=== PATIENT | female | born 1975 | race Hispanic/Latino ===

== ENCOUNTER 2016-06-07 13:50 | Outpatient (RCR) | payer OTHER ==
--- OUTSIDE RECORDS SUMMARY | 2016-04-26 14:18 | XMS REPORT | Continuity of Care Document ---
Author Author [facility] Organization [facility] Address Unknown Phone Unavailable Care Team Providers Care Billing Assistant Name Role Phone SEGUNDO FELIZ DO PCP Insurance Providers Payer Name Policy Number Subscriber Name Relationship Self Pay Approved Full [employer] [id number] Rodrigue Figueroa 18 Self / Same As Patient Advance Directives Directive Response Recorded Date/Time Advance Directives No 01/18/12 4:56pm Problems No problem information available. Medications Current Home Medications Medication Dose Units Route Directions Days/Qty Instructions Start Date Vits W-Ca,Fe,Fa(<1MG) 1 Each 1 Each Oral Daily 12/26/11 Calcium Carbonate/Vitamin D3 1 Each 1 Each Oral Daily 12/26/11 Ascorbate Calcium 500 Mg 500 Mg Oral Daily 12/26/11 Ferrous Sulfate 325 Mg 1 Tab Oral Daily 30 12/26/11 Ibuprofen 600 Mg 600 Mg Oral Q6hrs As Needed 01/20/12 Past Home Medications Medication Directions Ordered Status Nitrofurantoin Macrocrystals 100 Mg Capsule, 1 Each Oral Twice A Day Discontinued Phenazopyridine Hcl 200 Mg Tablet, 1 Each Oral Three Times A Day And Prn 21/04 Discontinued Social History Social History Problem Response Recorded Date/Time Recent Foreign Travel N [place] 02/16/2016 3:44pm Hospital Discharge Instructions No hospital discharge instructions. Plan of Care Prescriptions See Medication Section Functional Status No functional status results. Allergies, Adverse Reactions, Alerts No known allergies. Immunizations No immunization records. Vital Signs No known vital signs results. Results Laboratory Results Test Name Result Units Flags Reference Collection Date/Time Result Date/ Time Comments White Blood Count 4.6 10^3/uL 4.3-11.0 03/15/2016 2:05pm 03/15/2016 2: 09pm Red Blood Count 4.05 10^6/uL L 4.35-5.85 03/15/2016 2:05pm 03/15/2016 2: 09pm Hemoglobin 10.8 G/DL L 11.5-16.0 03/15/2016 2:05pm 03/15/2016 2:09pm Hematocrit 32 % L 35-52 03/15/2016 2:05pm 03/15/2016 2:09pm Mean Corpuscular Volume 80 FL 80-99 03/15/2016 2:05pm 03/15/2016 2: 09pm Mean Corpuscular Hemoglobin 27 PG 25-34 03/15/2016 2:05pm 03/15/2016 2: 09pm Mean Corpuscular Hemoglobin Concent 33 G/DL 32-36 03/15/2016 2:05pm 2:09pm Red Cell Distribution Width 15.4 % H 10.0-14.5 03/15/2016 2:05pm 2015 2:09pm Platelet Count 231 10^3/uL 130-400 03/15/2016 2:05pm 03/15/2016 2:09pm Mean Platelet Volume 10.2 FL 7.4-10.4 03/15/2016 2:05pm 03/15/2016 2: 09pm Neutrophils (%) (Auto) 55 % 42-75 03/15/2016 2:05pm 03/15/2016 2:09pm Lymphocytes (%) (Auto) 29 % 12-44 03/15/2016 2:05pm 03/15/2016 2:09pm Monocytes (%) (Auto) 14 % H 0-12 03/15/2016 2:05pm 03/15/2016 2:09pm Eosinophils (%) (Auto) 2 % 0-10 03/15/2016 2:05pm 03/15/2016 2:09pm Basophils (%) (Auto) 0 % 0-10 03/15/2016 2:05pm 03/15/2016 2:09pm Neutrophils # (Auto) 2.6 X 10^3 1.8-7.8 03/15/2016 2:05pm 03/15/2016 2: 09pm Lymphocytes # (Auto) 1.3 X 10^3 1.0-4.0 03/15/2016 2:05pm 03/15/2016 2: 09pm Monocytes # (Auto) 0.7 X 10^3 0.0-1.0 03/15/2016 2:05pm 03/15/2016 2: 09pm Eosinophils # (Auto) 0.1 10^3/uL 0.0-0.3 03/15/2016 2:05pm 03/15/2016 2 :09pm Basophils # (Auto) 0.0 10^3/uL 0.0-0.1 03/15/2016 2:05pm 03/15/2016 2: 09pm Sodium Level 140 MMOL/L 135-145 03/15/2016 2:05pm 03/15/2016 2:41pm Potassium Level 4.0 MMOL/L 3.6-5.0 03/15/2016 2:05pm 03/15/2016 2:41pm Chloride Level 111 MMOL/L H 98-107 03/15/2016 2:05pm 03/15/2016 2:41pm Carbon Dioxide Level 21 MMOL/L 21-32 03/15/2016 2:05pm 03/15/2016 2: 41pm Anion Gap 8 MMOL/L 5-14 03/15/2016 2:05pm 03/15/2016 2:41pm Blood Urea Nitrogen 11 MG/DL 7-18 03/15/2016 2:05pm 03/15/2016 2:41pm Creatinine 0.75 MG/DL 0.60-1.30 03/15/2016 2:05pm 03/15/2016 2:41pm BUN/Creatinine Ratio 15 03/15/2016 2:05pm 03/15/2016 2:41pm Estimat Glomerular Filtration Rate > 60 03/15/2016 2:05pm 2015 2:41pm GFR INTERPRETIVE DATA UNITS FOR ESTIMATED GFR (eGFR): mL/min/1.73 M2 REFERENCE RANGE FOR ESTIMATED GFR (eGFR) eGFR NORMAL eGFR >60 MODERATELY DECREASED eGFR 30-59 SEVERLY DECREASED eGFR 15-29 KIDNEY FAILURE <15 (OR DIALYSIS) Glucose Level 82 MG/DL 70-105 03/15/2016 2:05pm 03/15/2016 2:41pm Calcium Level 8.9 MG/DL 8.5-10.1 03/15/2016 2:05pm 03/15/2016 2:41pm Total Bilirubin 0.4 MG/DL 0.1-1.0 03/15/2016 2:05pm 03/15/2016 2:41pm Alkaline Phosphatase 59 U/L 40-136 03/15/2016 2:05pm 03/15/2016 2:41pm Aspartate Amino Transf (AST/SGOT) 15 U/L 5-34 03/15/2016 2:05pm 2015 2:41pm Alanine Aminotransferase (ALT/SGPT) 14 U/L 0-55 03/15/2016 2:05pm 03/15 2:41pm Total Protein 7.3 G/DL 6.4-8.2 03/15/2016 2:05pm 03/15/2016 2:41pm Albumin 3.9 G/DL 3.2-4.5 03/15/2016 2:05pm 03/15/2016 2:41pm Thyroid Stimulating Hormone (TSH) 1.08 UIU/ML 0.35-4.94 03/15/2016 2: 05pm 03/15/2016 3:12pm Procedures No known history of procedures. Encounters Encounter Location Arrival/Admit Date Discharge/Depart Date Attending Provider Discharged Recurring [facility] 03/15/16 1:34pm 9:01am ALIA STANLEY MD
[2016-04-26 14:29] LABS: BASOPHILS % (AUTO) 0 % (0-10); EOSINOPHILS # (AUTO) 0.2 10^3/uL (0.0-0.3); EOSINOPHILS % (AUTO) 3 % (0-10); LYMPHOCYTES # (AUTO) 1.7 X 10^3 (1.0-4.0); LYMPHOCYTES % (AUTO) 37 % (12-44); MEAN CORPUSCULAR HEMOGLOBIN 29 PG (25-34); MEAN CORPUSCULAR HGB CONC 35 G/DL (32-36); MEAN CORPUSCULAR VOLUME 83 FL (80-99); MEAN PLATELET VOLUME 11.1 FL (7.4-10.4); MONOCYTES # (AUTO) 0.5 X 10^3 (0.0-1.0); MONOCYTES % (AUTO) 10 % (0-12); NEUTROPHILS # (AUTO) 2.2 X 10^3 (1.8-7.8); NEUTROPHILS % (AUTO) 49 % (42-75); PLATELET COUNT 215 10^3/uL (130-400); RED BLOOD COUNT 4.21 10^6/uL (4.35-5.85); RED CELL DISTRIBUTION WIDTH 15.3 % (10.0-14.5); WHITE BLOOD COUNT 4.5 10^3/uL (4.3-11.0)
[2016-04-26 15:33] LABS: ALANINE AMINOTRANSFERASE 17 U/L (0-55); ALBUMIN 4.1 G/DL (3.2-4.5); ANION GAP 9 MMOL/L (5-14); ASPARTATE AMINO TRANSFERASE 14 U/L (5-34); BILIRUBIN,TOTAL 0.3 MG/DL (0.1-1.0); BLOOD UREA NITROGEN 11 MG/DL (7-18); BUN/CREATININE RATIO 15; CALCIUM 8.9 MG/DL (8.5-10.1); CARBON DIOXIDE 23 MMOL/L (21-32); CHLORIDE 108 MMOL/L (98-107); CREATININE SERUM 0.74 MG/DL (0.60-1.30); GFR ESTIMATED > 60; GLUCOSE 94 MG/DL (70-105); POTASSIUM 3.9 MMOL/L (3.6-5.0); SODIUM 140 MMOL/L (135-145); TOTAL PROTEIN 7.4 G/DL (6.4-8.2)
[2016-04-26 15:53] LABS: THYROID STIMULATING HORMONE 3.33 UIU/ML (0.35-4.94)
[2016-04-26 16:37] LABS: %SAT TOTAL IRON BINDING CAPIC 27 % (15-50); TIBC 275 ug/dL (280-380)
[2016-04-27 08:18] LABS: UIBC 202 ug/dL (55-450)
[2016-04-27 08:19] LABS: FERRITIN 46 ng/mL (15-150)
[~2016-06-07 13:50] MED LIST: ASCO-262 PO; CALC-80 PO; FRS325T PO; IBP600T1 PO; NITR-65 PO; PHEN200T27 PO; PREN1TAB39 PO
[2016-06-07 14:09] LABS: BASOPHILS % (AUTO) 0 % (0-10); EOSINOPHILS # (AUTO) 0.1 10^3/uL (0.0-0.3); EOSINOPHILS % (AUTO) 2 % (0-10); LYMPHOCYTES # (AUTO) 1.7 X 10^3 (1.0-4.0); LYMPHOCYTES % (AUTO) 30 % (12-44); MEAN CORPUSCULAR HEMOGLOBIN 29 PG (25-34); MEAN CORPUSCULAR HGB CONC 34 G/DL (32-36); MEAN CORPUSCULAR VOLUME 83 FL (80-99); MEAN PLATELET VOLUME 11.1 FL (7.4-10.4); MONOCYTES # (AUTO) 0.5 X 10^3 (0.0-1.0); MONOCYTES % (AUTO) 9 % (0-12); NEUTROPHILS # (AUTO) 3.4 X 10^3 (1.8-7.8); NEUTROPHILS % (AUTO) 59 % (42-75); PLATELET COUNT 212 10^3/uL (130-400); RED BLOOD COUNT 4.39 10^6/uL (4.35-5.85); RED CELL DISTRIBUTION WIDTH 14.3 % (10.0-14.5); WHITE BLOOD COUNT 5.7 10^3/uL (4.3-11.0)
[2016-06-07 15:18] LABS: ALANINE AMINOTRANSFERASE 16 U/L (0-55); ALBUMIN 4.3 G/DL (3.2-4.5); ANION GAP 9 MMOL/L (5-14); ASPARTATE AMINO TRANSFERASE 17 U/L (5-34); BILIRUBIN,TOTAL 0.6 MG/DL (0.1-1.0); BLOOD UREA NITROGEN 15 MG/DL (7-18); BUN/CREATININE RATIO 20; CALCIUM 9.2 MG/DL (8.5-10.1); CARBON DIOXIDE 21 MMOL/L (21-32); CHLORIDE 109 MMOL/L (98-107); CREATININE SERUM 0.74 MG/DL (0.60-1.30); GFR ESTIMATED > 60; GLUCOSE 102 MG/DL (70-105); POTASSIUM 3.8 MMOL/L (3.6-5.0); SODIUM 139 MMOL/L (135-145); TOTAL PROTEIN 7.8 G/DL (6.4-8.2)
[2016-06-07 15:38] LABS: THYROID STIMULATING HORMONE 1.05 UIU/ML (0.35-4.94)
== END 2016-07-25 | disposition home or self-care (01) ==
LOC: ONC 13:50
PROVIDERS: ATTEND Internal Medicine Hematology & Oncology
DX: D69.3 Immune thrombocytopenic purpura (principal); R51 Headache; E03.9 Hypothyroidism, unspecified; Z79.52 Long term (current) use of systemic steroids
CPT/HCPCS: 36415; 80053; 82728; 83540; 84443; 85025; 99213

== ENCOUNTER 2016-11-28 10:47 | Outpatient (RCR) | payer OTHER ==
--- OUTSIDE RECORDS SUMMARY | 2016-09-05 11:06 | XMS REPORT | Continuity of Care Document ---
Author Author [facility] Organization [facility] Address Unknown Phone Unavailable Care Team Providers Care Digital Field Service Technician Name Role Phone SEGUNDO FELIZ DO PCP Insurance Providers Payer Name Policy Number Subscriber Name Relationship Self Pay Approved Full [employer] [id number] Rodrigue Figueroa 18 Self / Same As [...] Discharge/Depart Date Attending Provider Discharged Recurring [facility] 03/15/16 1:34pm 9:01am ALIA STANLEY MD
[2016-09-05 11:20] LABS: BASOPHILS % (AUTO) 0 % (0-10); EOSINOPHILS # (AUTO) 0.1 10^3/uL (0.0-0.3); EOSINOPHILS % (AUTO) 3 % (0-10); LYMPHOCYTES # (AUTO) 1.5 X 10^3 (1.0-4.0); LYMPHOCYTES % (AUTO) 31 % (12-44); MEAN CORPUSCULAR HEMOGLOBIN 29 PG (25-34); MEAN CORPUSCULAR HGB CONC 34 G/DL (32-36); MEAN CORPUSCULAR VOLUME 85 FL (80-99); MEAN PLATELET VOLUME 10.9 FL (7.4-10.4); MONOCYTES # (AUTO) 0.6 X 10^3 (0.0-1.0); MONOCYTES % (AUTO) 12 % (0-12); NEUTROPHILS # (AUTO) 2.7 X 10^3 (1.8-7.8); NEUTROPHILS % (AUTO) 54 % (42-75); PLATELET COUNT 186 10^3/uL (130-400); RED BLOOD COUNT 4.26 10^6/uL (4.35-5.85); RED CELL DISTRIBUTION WIDTH 12.7 % (10.0-14.5)
[2016-09-05 12:21] LABS: ALANINE AMINOTRANSFERASE 21 U/L (0-55); ANION GAP 9 MMOL/L (5-14); ASPARTATE AMINO TRANSFERASE 17 U/L (5-34); BILIRUBIN,TOTAL 0.6 MG/DL (0.1-1.0); BLOOD UREA NITROGEN 10 MG/DL (7-18); BUN/CREATININE RATIO 13; CALCIUM 9.2 MG/DL (8.5-10.1); CARBON DIOXIDE 27 MMOL/L (21-32); CHLORIDE 106 MMOL/L (98-107); CREATININE SERUM 0.75 MG/DL (0.60-1.30); GFR ESTIMATED > 60; GLUCOSE 73 MG/DL (70-105); POTASSIUM 3.7 MMOL/L (3.6-5.0); SODIUM 142 MMOL/L (135-145); TOTAL PROTEIN 7.5 G/DL (6.4-8.2)
[2016-09-05 12:47] LABS: THYROID STIMULATING HORMONE 0.75 UIU/ML (0.35-4.94)
[2016-10-03 09:20] LABS: BASOPHILS % (AUTO) 1 % (0-10); EOSINOPHILS # (AUTO) 0.1 10^3/uL (0.0-0.3); EOSINOPHILS % (AUTO) 3 % (0-10); LYMPHOCYTES # (AUTO) 1.9 X 10^3 (1.0-4.0); LYMPHOCYTES % (AUTO) 37 % (12-44); MEAN CORPUSCULAR HEMOGLOBIN 30 PG (25-34); MEAN CORPUSCULAR HGB CONC 35 G/DL (32-36); MEAN CORPUSCULAR VOLUME 86 FL (80-99); MEAN PLATELET VOLUME 11.5 FL (7.4-10.4); MONOCYTES # (AUTO) 0.7 X 10^3 (0.0-1.0); MONOCYTES % (AUTO) 13 % (0-12); NEUTROPHILS # (AUTO) 2.5 X 10^3 (1.8-7.8); NEUTROPHILS % (AUTO) 47 % (42-75); PLATELET COUNT 173 10^3/uL (130-400); RED BLOOD COUNT 4.31 10^6/uL (4.35-5.85); RED CELL DISTRIBUTION WIDTH 12.7 % (10.0-14.5); WHITE BLOOD COUNT 5.3 10^3/uL (4.3-11.0)
[2016-11-02 10:59] LABS: BASOPHILS % (AUTO) 0 % (0-10); EOSINOPHILS # (AUTO) 0.1 10^3/uL (0.0-0.3); EOSINOPHILS % (AUTO) 3 % (0-10); LYMPHOCYTES # (AUTO) 1.9 X 10^3 (1.0-4.0); LYMPHOCYTES % (AUTO) 41 % (12-44); MEAN CORPUSCULAR HEMOGLOBIN 29 PG (25-34); MEAN CORPUSCULAR HGB CONC 34 G/DL (32-36); MEAN CORPUSCULAR VOLUME 85 FL (80-99); MEAN PLATELET VOLUME 11.1 FL (7.4-10.4); MONOCYTES # (AUTO) 0.6 X 10^3 (0.0-1.0); MONOCYTES % (AUTO) 12 % (0-12); NEUTROPHILS % (AUTO) 43 % (42-75); PLATELET COUNT 194 10^3/uL (130-400); RED BLOOD COUNT 4.55 10^6/uL (4.35-5.85); RED CELL DISTRIBUTION WIDTH 13.4 % (10.0-14.5); WHITE BLOOD COUNT 4.6 10^3/uL (4.3-11.0)
[2016-11-28 11:08] LABS: BASOPHILS % (AUTO) 0 % (0-10); EOSINOPHILS # (AUTO) 0.2 10^3/uL (0.0-0.3); EOSINOPHILS % (AUTO) 3 % (0-10); LYMPHOCYTES # (AUTO) 1.8 X 10^3 (1.0-4.0); LYMPHOCYTES % (AUTO) 35 % (12-44); MEAN CORPUSCULAR HEMOGLOBIN 29 PG (25-34); MEAN CORPUSCULAR HGB CONC 34 G/DL (32-36); MEAN CORPUSCULAR VOLUME 85 FL (80-99); MEAN PLATELET VOLUME 10.5 FL (7.4-10.4); MONOCYTES # (AUTO) 0.7 X 10^3 (0.0-1.0); MONOCYTES % (AUTO) 14 % (0-12); NEUTROPHILS # (AUTO) 2.4 X 10^3 (1.8-7.8); NEUTROPHILS % (AUTO) 48 % (42-75); PLATELET COUNT 208 10^3/uL (130-400); RED BLOOD COUNT 4.43 10^6/uL (4.35-5.85); RED CELL DISTRIBUTION WIDTH 13.4 % (10.0-14.5); WHITE BLOOD COUNT 5.1 10^3/uL (4.3-11.0)
[2016-11-28 12:16] LABS: ALANINE AMINOTRANSFERASE 34 U/L (0-55); ALBUMIN 4.2 G/DL (3.2-4.5); ANION GAP 9 MMOL/L (5-14); ASPARTATE AMINO TRANSFERASE 26 U/L (5-34); BILIRUBIN,TOTAL 0.6 MG/DL (0.1-1.0); BLOOD UREA NITROGEN 13 MG/DL (7-18); BUN/CREATININE RATIO 16; CALCIUM 9.5 MG/DL (8.5-10.1); CARBON DIOXIDE 25 MMOL/L (21-32); CHLORIDE 108 MMOL/L (98-107); CREATININE SERUM 0.79 MG/DL (0.60-1.30); GFR ESTIMATED > 60; GLUCOSE 90 MG/DL (70-105); POTASSIUM 3.9 MMOL/L (3.6-5.0); SODIUM 142 MMOL/L (135-145); TOTAL PROTEIN 8.7 G/DL (6.4-8.2)
[2016-11-28 12:38] LABS: THYROID STIMULATING HORMONE 3.78 UIU/ML (0.35-4.94)
== END 2016-12-04 | disposition home or self-care (01) ==
LOC: ONC 10:47
PROVIDERS: ATTEND Internal Medicine Hematology & Oncology
DX: D69.3 Immune thrombocytopenic purpura (principal); E03.9 Hypothyroidism, unspecified; I10 Essential (primary) hypertension; Z79.52 Long term (current) use of systemic steroids
CPT/HCPCS: 36415; 80053; 84443; 85025; 99213

== ENCOUNTER 2017-03-19 10:46 | Outpatient (RCR) | payer OTHER ==
[2016-12-25 10:53] LABS: BASOPHILS % (AUTO) 1 % (0-10); EOSINOPHILS # (AUTO) 0.1 10^3/uL (0.0-0.3); EOSINOPHILS % (AUTO) 3 % (0-10); LYMPHOCYTES # (AUTO) 1.6 X 10^3 (1.0-4.0); LYMPHOCYTES % (AUTO) 38 % (12-44); MEAN CORPUSCULAR HGB CONC 35 G/DL (32-36); MEAN CORPUSCULAR VOLUME 85 FL (80-99); MONOCYTES # (AUTO) 0.5 X 10^3 (0.0-1.0); MONOCYTES % (AUTO) 12 % (0-12); NEUTROPHILS % (AUTO) 46 % (42-75); PLATELET COUNT 192 10^3/uL (130-400); RED BLOOD COUNT 4.24 10^6/uL (4.35-5.85); RED CELL DISTRIBUTION WIDTH 13.9 % (10.0-14.5); WHITE BLOOD COUNT 4.3 10^3/uL (4.3-11.0)
[2016-12-25 10:57] LABS: MEAN CORPUSCULAR HEMOGLOBIN 29 PG (25-34)
[2016-12-25 11:43] LABS: ALANINE AMINOTRANSFERASE 31 U/L (0-55); ALBUMIN 4.1 GM/DL (3.2-4.5); ANION GAP 7 MMOL/L (5-14); ASPARTATE AMINO TRANSFERASE 25 U/L (5-34); BILIRUBIN,TOTAL 0.7 MG/DL (0.1-1.0); BLOOD UREA NITROGEN 12 MG/DL (7-18); BUN/CREATININE RATIO 16 (0-20); CALCIUM 9.3 MG/DL (8.5-10.1); CARBON DIOXIDE 26 MMOL/L (21-32); CHLORIDE 108 MMOL/L (98-107); CREATININE SERUM 0.76 MG/DL (0.60-1.30); GFR ESTIMATED > 60; GLUCOSE 74 MG/DL (70-105); HEMOLYSIS 6 (-100-29); ICTERUS 1.2 (-100-1.9); LIPEMIA 4 (-100-49); POTASSIUM 3.9 MMOL/L (3.6-5.0); SODIUM 141 MMOL/L (135-145); TOTAL PROTEIN 8.6 GM/DL (6.4-8.2)
[2016-12-25 12:03] LABS: THYROID STIMULATING HORMONE 2.52 UIU/ML (0.35-4.94)
[2017-03-19 11:07] LABS: BASOPHILS % (AUTO) 1 % (0-10); EOSINOPHILS # (AUTO) 0.1 10^3/uL (0.0-0.3); EOSINOPHILS % (AUTO) 3 % (0-10); LYMPHOCYTES # (AUTO) 1.7 X 10^3 (1.0-4.0); LYMPHOCYTES % (AUTO) 40 % (12-44); MEAN CORPUSCULAR HEMOGLOBIN 29 PG (25-34); MEAN CORPUSCULAR HGB CONC 34 G/DL (32-36); MEAN CORPUSCULAR VOLUME 85 FL (80-99); MEAN PLATELET VOLUME 10.9 FL (7.4-10.4); MONOCYTES # (AUTO) 0.5 X 10^3 (0.0-1.0); MONOCYTES % (AUTO) 12 % (0-12); NEUTROPHILS % (AUTO) 45 % (42-75); PLATELET COUNT 206 10^3/uL (130-400); RED BLOOD COUNT 4.35 10^6/uL (4.35-5.85); RED CELL DISTRIBUTION WIDTH 13.8 % (10.0-14.5); WHITE BLOOD COUNT 4.4 10^3/uL (4.3-11.0)
[2017-03-19 11:38] LABS: ALANINE AMINOTRANSFERASE 36 U/L (0-55); ALBUMIN 4.2 GM/DL (3.2-4.5); ANION GAP 6 MMOL/L (5-14); ASPARTATE AMINO TRANSFERASE 26 U/L (5-34); BILIRUBIN,TOTAL 0.7 MG/DL (0.1-1.0); BLOOD UREA NITROGEN 13 MG/DL (7-18); BUN/CREATININE RATIO 16; CALCIUM 9.2 MG/DL (8.5-10.1); CARBON DIOXIDE 26 MMOL/L (21-32); CHLORIDE 106 MMOL/L (98-107); CREATININE SERUM 0.81 MG/DL (0.60-1.30); GFR ESTIMATED > 60; GLUCOSE 83 MG/DL (70-105); POTASSIUM 4.1 MMOL/L (3.6-5.0); SODIUM 138 MMOL/L (135-145); TOTAL PROTEIN 8.3 GM/DL (6.4-8.2)
== END 2017-03-25 | disposition still patient (30) ==
LOC: ONC 10:46
PROVIDERS: ATTEND Internal Medicine Hematology & Oncology
DX: D69.3 Immune thrombocytopenic purpura (principal); E03.9 Hypothyroidism, unspecified; I10 Essential (primary) hypertension; Z79.52 Long term (current) use of systemic steroids
CPT/HCPCS: 36415; 80053; 84443; 85025; 99213

== ENCOUNTER → 2021-01-12 | Outpatient (CLI) | payer SELFPAY ==
[2021-01-12 12:44] VITALS: BP 108/61
--- NOTE | 2021-01-12 13:17 | Cardiology Stress Test Report ---
Stress Test Report Date of Procedure/Referring: Date of Procedure: Jan 12, 2021 PCP Ubaldo Mckenna MD Admitting Physician Ana Luisa Christian DO Indications: CP Baseline Heart Rate: 70 Baseline Blood Pressure: Blood Pressure Systolic: 108 Blood Pressure Diastolic: 61 Baseline EKG: Baseline EKG: NSR Summary/Conclusion: Summary: In summary, the patient started exercising with a baseline heart rate, blood pressure and EKG mentioned above Patient was able to exercise for a total of 6 minutes on Severo protocol, METs 7.3 Maximum heart rate 160 Maximum blood pressure 149/38 Stress EKG, Minimal nondiagnostic changes Recovery EKG , Return to baseline Conclusion: 1. Good exercise tolerance for a total of 6 minutes on Severo protocol, 7.3 METs, achieving 90 percent of maximum expected heart rate 2. Minimal nondiagnostic EKG changes with exercise returned to baseline during recovery 3. No arrhythmia was noted UBALDO MCKENNA MD Jan 12, 2021 1:17 pm
== END ==
LOC: CARD 11:57
PROVIDERS: ATTEND Internal Medicine Cardiovascular Disease
DX: R07.9 Chest pain, unspecified (principal); R06.02 Shortness of breath; E03.9 Hypothyroidism, unspecified
CPT/HCPCS: 93017; 93306

== ENCOUNTER 2022-09-16 12:55 | Emergency (ER) | payer SELFPAY ==
[~2022-09-16] VITALS: Ht 162 cm; Wt 77.1 kg
[2022-09-16 13:11] VITALS: BP 132/82
[2022-09-16] MEDS ORDERED: NS IV 1000 ML 1,000 ML IV STA (13:12)
[2022-09-16] MEDS ORDERED: ONDANSETRON 4 MG/2 ML (SDV) Z0FRAN IVP ONE (13:15)
[2022-09-16] MEDS ORDERED: fentaNYL INJ 100 MCG/2 ML AMP IVP STA (13:19)
--- NOTE | 2022-09-16 13:22 | ED Abdominal Pain ---
General Stated Complaint: FEVER/WEAKNESS/VOMITING Source of Information: Patient Exam Limitations: No Limitations (EL GLASER) History of Present Illness Date Seen by Provider: Sep 16, 2022 Time Seen by Provider: 13:19 Initial Comments Patient is a 47-year-old female who presents the ED with multiple complaints. She states yesterday afternoon*developing severe pain in her left ear. Sharp pain radiating down her neck to left side of her head. Feels like a pulsating pain with some hearing changes. She states she has had a wet cough with clear mucus production since yesterday. She started feeling weak and fatigued with worsening ear pain this morning. She states she has vomited at least 5 times without any hematemesis. She developed right upper quadrant pain right before the vomiting. Sharp pain without radiation to the back or neck. She denies of any urinary symptoms or previous abdominal surgeries. She denies of any chest pain, visual changes, unilateral muscle weakness or sensory changes. She does states she feels weak throughout and had a low-grade subjective fever at home. Has been taken anti-inflammatories without much improvement. No one else at home with similar symptoms. Denies chest pain, shortness of breath, severe head pain, dysuria, hematuria, diarrhea (EL GLASER) Allergies and Home Medications Allergies Coded Allergies: No Known Drug Allergies (Unverified , 12/14/11) Patient Home Medication List Home Medication List Reviewed: Yes (EL GLASER) Amoxicillin/Potassium Clav (Amox Tr-K Clv 875-125 mg Tab) 875 Mg-125 Mg Tablet, 1 EACH PO BID Prescribed by: JASON SCHROEDER on 09/16/22 1537 Ascorbate Calcium (Vitamin C) 500 Mg Tablet, 500 MG PO DAILY, (Reported) Entered as Reported by: HORACIO AUGUSTE on 12/26/11 165 Calcium Carbonate/Vitamin D3 (Calcium 600 + D Caplet) 1 Each Tablet, 1 EACH PO DAILY, (Reported) Entered as Reported by: HORACIO AUGUSTE on 12/26/11 165 Ferrous Sulfate (Iron) 325 Mg Tablet, 1 TAB PO DAILY, (Reported) Entered as Reported by: HORACIO AUGUSTE on 12/26/11 165 Ibuprofen (Motrin) 600 Mg Tab, 600 MG PO Q6HRS NEEDED, (Reported) Entered as Reported by: CHANELLE FISHER on 01/20/12 1129 Ibuprofen (Ibuprofen) 600 Mg Tablet, 600 MG PO Q6H Prescribed by: JASON SCHROEDER on 09/16/22 1538 Ondansetron (Ondansetron Odt) 4 Mg Tab.rapdis, 4 MG SL Q4H PRN for NAUSEA/VOMITING Prescribed by: JASON SCHROEDER on 09/16/22 1539 Vits W-Ca,Fe,Fa(<1MG) () 1 Each Tablet, 1 EACH PO DAILY, (Reported) Entered as Reported by: HORACIO AUGUSTE on 12/26/11 1652 Review of Systems Review of Systems Constitutional: No chills; fever, malaise, weakness EENTM: No Double Vision, No Eye Pain Respiratory: Denies Cough, Denies Shortness of Air Cardiovascular: Denies Chest Pain Gastrointestinal: Abdominal Pain; Denies Diarrhea; Nausea, Vomiting Genitourinary: Denies Burning, Denies Discharge, Denies Frequency Musculoskeletal: No back pain, No joint pain Skin: No change in color, No change in hair/nails (EL GLASER) All Other Systems Reviewed Negative Unless Noted: Yes (EL GLASER) Past Csngect-Gxewdv-Aviswn Hx Past Medical History Reproductive Disorders: No (EL GLASER) Physical Exam Vital Signs Vital Signs - First Documented 09/16/22 13:11 Temp 36.9 Pulse 71 Resp 16 B/P (MAP) 132/82 (99) Pulse Ox 98 O2 Delivery Room Air (BOUCHRA,STEPH K DO) Vital Signs Capillary Refill : (EL GLASER) Height/Weight/BMI Height: '" Weight: lbs. oz. kg; BMI Method: General Appearance: WD/WN, no apparent distress HEENT: PERRL/EOMI, normal ENT inspection, pharynx normal, other (Left TM with erythema and swelling. 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, no motor/sensory deficits, alert, normal mood/affect, oriented x 3 Skin: normal color, warm/dry (EL GLASER) Progress/Results/Core Measures Results/Orders Lab Results Laboratory Tests Test 09/16/22 13:15 09/16/22 14:44 Range/Units White Blood Count 8.8 4.3-11.0 10^3/uL Red Blood Count 4.21 3.80-5.11 10^6/uL Hemoglobin 11.9 11.5-16.0 g/dL Hematocrit 36 35-52 % Mean Corpuscular Volume 85 80-99 fL Mean Corpuscular Hemoglobin 28 25-34 pg Mean Corpuscular Hemoglobin Concent 33 32-36 g/dL Red Cell Distribution Width 13.2 10.0-14.5 % Platelet Count 208 130-400 10^3/uL Mean Platelet Volume 10.9 9.0-12.2 fL Immature Granulocyte % (Auto) 1 % Neutrophils (%) (Auto) 72 42-75 % Lymphocytes (%) (Auto) 18 12-44 % Monocytes (%) (Auto) 9 0-12 % Eosinophils (%) (Auto) 1 0-10 % Basophils (%) (Auto) 0 0-10 % Neutrophils # (Auto) 6.3 1.8-7.8 10^3/uL Lymphocytes # (Auto) 1.6 1.0-4.0 10^3/uL Monocytes # (Auto) 0.8 0.0-1.0 10^3/uL Eosinophils # (Auto) 0.1 0.0-0.3 10^3/uL Basophils # (Auto) 0.0 0.0-0.1 10^3/uL Immature Granulocyte # (Auto) 0.0 0.0-0.1 10^3/uL Sodium Level 141 135-145 MMOL/L Potassium Level 3.5 L 3.6-5.0 MMOL/L Chloride Level 106 98-107 MMOL/L Carbon Dioxide Level 24 21-32 MMOL/L Anion Gap 11 5-14 MMOL/L Blood Urea Nitrogen 12 7-18 MG/DL Creatinine 0.80 0.60-1.30 MG/DL Estimat Glomerular Filtration Rate 93 BUN/Creatinine Ratio 15 Glucose Level 98 70-105 MG/DL Calcium Level 9.5 8.5-10.1 MG/DL Corrected Calcium 9.3 8.5-10.1 MG/DL Total Bilirubin 0.7 0.1-1.0 MG/DL Aspartate Amino Transf (AST/SGOT) 14 5-34 U/L Alanine Aminotransferase (ALT/SGPT) 17 0-55 U/L Alkaline Phosphatase 52 40-136 U/L Troponin I < 0.028 <0.028 NG/ML Total Protein 9.3 H 6.4-8.2 GM/DL Albumin 4.3 3.2-4.5 GM/DL Lipase 22 8-78 U/L Influenza Type A (RT-PCR) Not Detected Not Detecte Influenza Type B (RT-PCR) Not Detected Not Detecte SARS-CoV-2 RNA (RT-PCR) Not Detected Not Detecte Urine Color YELLOW Urine Clarity CLEAR Urine pH 7.0 5-9 Urine Specific [place] 1.020 1.016-1.022 Urine Protein NEGATIVE NEGATIVE Urine Glucose (UA) NEGATIVE NEGATIVE Urine Ketones NEGATIVE NEGATIVE Urine Nitrite NEGATIVE NEGATIVE Urine Bilirubin NEGATIVE NEGATIVE Urine Urobilinogen 0.2 < = 1.0 MG/DL Urine Leukocyte Esterase NEGATIVE NEGATIVE Urine RBC (Auto) NEGATIVE NEGATIVE Urine RBC NONE /HPF Urine WBC RARE /HPF Urine Squamous Epithelial Cells RARE /HPF Urine Crystals NONE /LPF Urine Bacteria TRACE /HPF Urine Casts NONE /LPF Urine Mucus NEGATIVE /LPF Urine Culture Indicated NO Urine Test NEGATIVE NEGATIVE (STEPH SHOOK DO) Vital Signs/I&O 09/16/22 13:11 Temp 36.9 Pulse 71 Resp 16 B/P (MAP) 132/82 (99) Pulse Ox 98 O2 Delivery Room Air (STEPH SHOOK DO) Comment Sinus rhythm, 69 bpm, QRS duration 79 MS, QTc 399 MS (EL GLASER) Departure Communication (PCP) Nurse was used as registered nurse renal as patient is [place]ian-speaking. She agreed to use medical staff. Reviewed previous ER visits, H&P, testing. Patient with left ear pain since last night. Vomiting weakness and fever today. Mild cough. Flulike symptoms with right upper quadrant tenderness. No history of previous abdominal surgery. Due to current presentation, actively vomiting, CBC, CMP, lipase, urinalysis, COVID and influenza swab was performed. CBC and CMP was unremarkable. Urinalysis was negative for infection. Negative for . She still does have menstrual cycles. COVID influenza was negative. Due to location of pain right upper quadrant epigastric region EKG and troponin was added. EKG normal sinus rhythm without evidence of ST elevation or pression. Normal troponin. No specific chest pain or shortness of breath. This was ordered secondary to atypical presentation. She did have a left otitis media which would explain her left ear pain. Will discharge with Augmentin and naproxen for the pain. She did have significant tenderness in her right upper quadrant. Concerning for biliary colic, cholecystitis, gastritis, GERD, biliary dyskinesia. CT abdomen and pelvis was ordered which was otherwise unremarkable. No evidence of cholelithiasis. Did note moderate stool loading. She does report normal bowel movements without any diarrhea. Discussed laxative such as Dulcolax, magnesium citrate. Discussed high-fiber diet. Recommend staying hydrated. If no improvement with her abdominal pain recommend further eval uation with outpatient testing such as ultrasound, HIDA scan for secondary to biliary colic, biliary dyskinesia. Discussed PPI for potential gastritis, GERD. Patient was given dose of fentanyl for improvement of her abdominal pain. She received a liter of fluid and Zofran for the nausea. Tolerating p.o. fluids. Discussed probiotics. Recommend follow-up with your PCP in 2 to 3 days for reevaluation. If any worsening symptoms return back to ED. (EL GLASER) Impression Primary Impression: Otitis media Additional Impression: Constipation Disposition: 01 HOME, SELF-CARE Condition: Stable Departure-Patient Inst. Decision time for Depature: 15:35 (EL GLASER) Referrals: [facility] (PCP/Family) Primary Care Physician Patient Instructions: Ear Infection ED, Constipation, Adult ED Add. Discharge Instructions: Recommend taking oral Dulcolax 1-3 tabs daily as needed for bowel movement. If no bowel movement in the next 24 hours recommend drinking a bottle of magnesium citrate over a 24-hour period. If no bowel movement recommend Fleet enema. Recommend Metamucil or high-fiber diet. Take antibiotics as prescribed. May consider probiotic while taking Augmentin. If any worsening symptoms return back to ED. Provided pain medication. Scripts Ondansetron (Ondansetron Odt) 4 Mg Tab.rapdis 4 MG SL Q4H PRN for NAUSEA/VOMITING, #6 TAB Prov: EL GLASER 09/16/22 Ibuprofen (Ibuprofen) 600 Mg Tablet 600 MG PO Q6H for PAIN, #16 TAB 0 Refills Prov: EL GLASER 09/16/22 Amoxicillin/Potassium Clav (Amox Tr-K Clv 875-125 mg Tab) 875 Mg-125 Mg Tablet 1 EACH PO BID for 7 Days, #14 TAB Prov: EL GLASER 09/16/22 ATTENDING PHYSICIAN NOTE: I WAS PHYSICALLY PRESENT ER PHYSICIAN, BUT I WAS NOT INVOLVED IN ANY DECISION MAKING OR ANY CARE OF THIS PATIENT, AND I AM NOT COLLABORATING PHYSICIAN. (STEPH SHOOK DO) EL GLASER Sep 16, 2022 13:22 STEPH SHOOK DO Sep 17, 2022 06:40
[2022-09-16 13:26] LABS: BASOPHILS % (AUTO) 0 % (0-10); EOSINOPHILS # (AUTO) 0.1 10^3/uL (0.0-0.3); EOSINOPHILS % (AUTO) 1 % (0-10); HEMATOCRIT 36 % (35-52); HEMOGLOBIN 11.9 g/dL (11.5-16.0); LYMPHOCYTES # (AUTO) 1.6 10^3/uL (1.0-4.0); LYMPHOCYTES % (AUTO) 18 % (12-44); MEAN CORPUSCULAR HEMOGLOBIN 28 pg (25-34); MEAN CORPUSCULAR HGB CONC 33 g/dL (32-36); MEAN CORPUSCULAR VOLUME 85 fL (80-99); MEAN PLATELET VOLUME 10.9 fL (9.0-12.2); MONOCYTES # (AUTO) 0.8 10^3/uL (0.0-1.0); MONOCYTES % (AUTO) 9 % (0-12); NEUTROPHILS # (AUTO) 6.3 10^3/uL (1.8-7.8); NEUTROPHILS % (AUTO) 72 % (42-75); PLATELET COUNT 208 10^3/uL (130-400); WHITE BLOOD COUNT 8.8 10^3/uL (4.3-11.0)
[2022-09-16 13:41] LABS: ALBUMIN 4.3 GM/DL (3.2-4.5); POTASSIUM 3.5 MMOL/L (3.6-5.0)
[2022-09-16 13:43] LABS: CALCIUM 9.5 MG/DL (8.5-10.1)
[2022-09-16 13:44] LABS: TOTAL PROTEIN 9.3 GM/DL (6.4-8.2)
[2022-09-16 13:46] LABS: BILIRUBIN,TOTAL 0.7 MG/DL (0.1-1.0)
[2022-09-16 13:48] LABS: CREATININE SERUM 0.8 MG/DL (0.60-1.30)
[2022-09-16] MEDS ORDERED: NS 100 ML (IVPB) BAG IV ONE (14:45)
[2022-09-16] MEDS ORDERED: IOHEXOL 350 MG/ML 100 ML (OMNIPAQUE 350) VIAL IV ONE (14:45)
[2022-09-16 14:49] LABS: BILIRUBIN,URINE NEGATIVE (NEGATIVE); CLARITY,URINE CLEAR; COLOR,URINE YELLOW; GLUCOSE, URINE (UA) NEGATIVE (NEGATIVE); KETONES,URINE NEGATIVE (NEGATIVE); LEUKOCYTE ESTERASE ,URINE NEGATIVE (NEGATIVE); NITRITE,URINE NEGATIVE (NEGATIVE); PROTEIN,URINE NEGATIVE (NEGATIVE)
[2022-09-16 15:01] LABS: BACTERIA,URINE TRACE /HPF; SQUAMOUS EPITHELIAL CELL,UR RARE /HPF; WBC,URINE RARE /HPF
--- NOTE | 2022-09-16 15:24 | Diagnostic Imaging Report ---
PROCEDURE: CT abdomen and pelvis with contrast. TECHNIQUE: Multiple contiguous axial images were obtained through the abdomen and pelvis after administration of intravenous contrast. Auto Exposure Controls were utilized during the CT exam to meet ALARA standards for radiation dose reduction. All CT scans use one or more of the following dose optimizing techniques: automated exposure control, MA and/or KvP adjustment based on patient size and exam type or iterative reconstruction. INDICATION: Abdominal pain, right upper quadrant. COMPARISON: None. FINDINGS: Lung bases are clear. The heart is normal in size. The liver demonstrates no focal lesion. No calcified gallstone is seen. The spleen appears normal. The pancreas is normal. The adrenal glands are normal. The kidneys demonstrate no hydronephrosis or enhancing lesion. Mild wall thickening of the urinary bladder is thought to be due to nondistention. The appendix appears normal. The bowel loops are nondistended without obstruction. There is moderate stool in the colon and rectum. The stomach is decompressed. No free fluid or free air is seen. No acute osseous abnormality is identified. IMPRESSION: Moderate stool in the colon and rectum, please correlate with any history of constipation. Otherwise, no acute abnormality is seen in the abdomen and pelvis. Dictated by: Dictated on workstation # [id number]
[2022-09-16] MEDS ORDERED: AMOX1TAB12 PO (15:37)
[2022-09-16] MEDS ORDERED: IBUP-1773 PO (15:38)
[2022-09-16] MEDS ORDERED: ONDA4TAB11 SL (15:39)
== END 2022-09-16 15:50 | disposition home or self-care (01) ==
LOC: EDUNIT# 12:55 → ER 13:00
DX: H66.92 Otitis media, unspecified, left ear (principal); K59.00 Constipation, unspecified; Z20.822 Contact with and (suspected) exposure to COVID-19
CPT/HCPCS: 36415; 74177; 80053; 81000; 83690; 84484; 84703; 85025; 87636; 93005